=== PATIENT | female | born 1990 | race Caucasian/White ===

== ENCOUNTER 2017-06-22 15:40 | Emergency (ER) | payer OTHER ==
[~2017-06-22] VITALS: Ht 160 cm; Wt 59.0 kg
[~2017-06-22 15:40] MED LIST: DURICEF500 MG PO; TORADOL10 MG PO
== END 2017-06-22 22:12 | disposition home or self-care (01) ==
LOC: ER 15:40
DX: R10.84 Generalized abdominal pain (principal); R11.2 Nausea with vomiting, unspecified

== ENCOUNTER 2018-09-15 13:55 | Emergency (ER) | payer OTHER ==
[~2018-09-15] VITALS: Ht 160 cm; Wt 59.0 kg
== END 2018-09-15 17:53 | disposition home or self-care (01) ==
LOC: ER 13:55
DX: J11.1 Influenza due to unidentified influenza virus with other respiratory manifestations (principal)

== ENCOUNTER 2019-03-11 15:14 | Emergency (ER) | payer OTHER ==
[~2019-03-11] VITALS: Ht 157.5 cm; Wt 59.0 kg
[2019-03-11] MEDS ORDERED: DICLOFENAC SODI75 MG PO (16:40)
== END 2019-03-11 17:01 | disposition home or self-care (01) ==
LOC: ER 15:14
DX: M54.5 Low back pain (principal)

== ENCOUNTER 2021-12-21 11:45 | Emergency (ER) | payer OTHER ==
[~2021-12-21] VITALS: Ht 154.9 cm; Wt 59.0 kg
[~2021-12-21 11:45] MED LIST changes: +DICLOFENAC SODI75 MG PO
[2021-12-21] MEDS ORDERED: KETO10TA2 PO (18:25)
[2021-12-21] MEDS ORDERED: NORFLEX100MG PO (18:25)
== END 2021-12-21 18:27 | disposition home or self-care (01) ==
LOC: ER 11:45
DX: R10.84 Generalized abdominal pain (principal)

== ENCOUNTER 2022-08-01 08:50 | Emergency (ER) | payer OTHER ==
[~2022-08-01] VITALS: Ht 157.5 cm; Wt 61.2 kg
[~2022-08-01 08:50] MED LIST changes: +KETO10TA2 PO; +NORFLEX100MG PO
== END 2022-08-01 15:37 | disposition home or self-care (01) ==
LOC: ER 08:50
DX: N83.202 Unspecified ovarian cyst, left side (principal); Z88.8 Allergy status to other drugs, medicaments and biological substances

== ENCOUNTER 2023-05-23 12:59 | Emergency (ER) | payer OTHER ==
[~2023-05-23] VITALS: Ht 157.5 cm; Wt 59.0 kg
[2023-05-23 16:03] LABS: HEMOGLOBIN 13.1 g/dL (12.0-15.00); MEAN CELL VOLUME 79.6 fL (80.00-100.00); MEAN CORPUSCULAR HEMOGLOBIN 26.1 pg (27.00-32.0); MEAN CORPUSCULAR HGB CONC 32.7 g/dl (32.0-36.0); PLATELET COUNT 239 K/uL (150-450); RED BLOOD COUNT 5.03 M/uL (4.00-6.00); RED CELL DISTRIBUTION WIDTH 15.4 % (11.5-14.5)
[2023-05-23 16:04] LABS: URINE APPEARANCE Clear; URINE BILIRRUBIN Negative (NEGATIVE); URINE BLOOD Negative; URINE COLOR Yellow; URINE GLUCOSE Negative (NEGATIVE); URINE LEUKOCYTE Trace; URINE NITRATE Negative; URINE PROTEIN Negative (NEGATIVE)
[2023-05-23 16:07] LABS: URINE BACTERIA 1273.7 uL (0.0-1933); URINE EPITHELIAL CELLS 20.8 uL (0.0-38.8); URINE RBC 4.3 uL (0.0-20.8); URINE WBC 16.5 uL (0.0-23.2)
[2023-05-23 16:10] LABS: INR 0.99; PARTIAL THROMBOPLASTIN TIME 29.6 SECONDS (22.0-34.0); PROTHROMBIN TIME 10.4 SECONDS (9.0-11.5)
[2023-05-23 16:14] LABS: CALCIUM 9.2 mg/dL (8.5-10.1); CREATININE SERUM 0.68 mg/dL (0.55-1.02); GFR 100.92; POTASSIUM 3.68 mEq/L (3.5-5.1)
== END 2023-05-23 17:13 | disposition home or self-care (01) ==
LOC: ER 12:59
PROVIDERS: General Practice
DX: N83.292 Other ovarian cyst, left side (principal); Z88.8 Allergy status to other drugs, medicaments and biological substances